=== PATIENT | female | born 1990 | race Two or more races ===

== ENCOUNTER 2020-12-22 07:13 | Inpatient (IN) | payer OTHER ==
[2020-12-22 08:24] VITALS: BMI 37.9
[2020-12-22 08:41] LABS: BASO % 0.5 % (0-2.0); EOS % 1.9 % (0-4.5); HEMOGLOBIN 11.5 GM/dL (10.7-15.3); LYMPH % 16.8 % (8-40); MCH 27.9 pg (25.7-33.7); MCHC 33.9 g/dl (32.0-36.0); MEAN CELL VOLUME 82.3 fl (80-96); MEAN PLT VOLUME 8.2 fl (7.5-11.1); NEUT % 75.8 % (42.8-82.8); PLATELET COUNT 233 10^3/uL (134-434); RBC 4.13 M/mm3 (3.60-5.2); RDW 14.2 % (11.6-15.6); WHITE BLOOD COUNT 6.1 K/mm3 (4.0-10.0)
[2020-12-22 08:58] LABS: INR 0.92 (0.83-1.09); PROTHROMBIN TIME (PATIENT) 11.3 SEC (9.7-13.0)
[2020-12-22 09:00] LABS: ACTIVATED PTT 28.5 SECONDS (25.2-36.5); CALCIUM 8.7 mg/dL (8.5-10.1)
[2020-12-22 09:01] LABS: BLOOD UREA NITROGEN 13.6 mg/dL (7-18)
[2020-12-22 09:04] LABS: CREATININE 0.5 mg/dL (0.55-1.3)
[2020-12-22] MEDS ORDERED: PROMETHAZINE HCL 25 MG/1 ML VIAL IVPB ONE (09:04)
[2020-12-22] MEDS ORDERED: BUTORPHANOL TARTRATE 1 MG/ML VIAL IVPB PRN (09:04)
[2020-12-22 09:19] LABS: RETICULOCYTES 1.63 % (0.5-1.5)
[2020-12-22] MEDS ORDERED: DINOPROSTONE 10 MG VAGINAL SUPPOSITORY VG ONE (09:30)
[2020-12-22] MEDS: ELECTROLYTE-148 SOLN 1,000 ML IV SCH ×2 (10:30→18:00)
[2020-12-22 11:12] LABS: PH,URINE 8.5 (5.0-8.0); URINE APPEARANCE Clear; URINE BILIRUBIN Negative (NEGATIVE); URINE COLOR Yellow; URINE GLUCOSE (UA) Negative (NEGATIVE); URINE KETONE 1+ (NEGATIVE); URINE LEUK ESTERASE Negative (NEGATIVE); URINE NITRITE Negative (NEGATIVE); URINE PROTEIN Negative (NEGATIVE)
[2020-12-22] MEDS: MISOPROSTOL 25 MCG TABLET (COMPOUNDED BY PHARMACY) PO SCH ×3 (12:15→20:15)
[2020-12-22 12:40] LABS: HIV INTERPRETATION NEGATIVE (NEGATIVE)
[2020-12-22] MEDS ORDERED: AMPICILLIN - 2 GM in SODIUM CHLORIDE 100 ML IVPB ONE (16:20)
[2020-12-22] MEDS ORDERED: OXYTOCIN 30 UNITS in 0.9% NS 30 UNIT/500 ML INFUS.BAG IVPB SCH (23:15)
[2020-12-23] MEDS ORDERED: OXYTOCIN 30 UNITS in 0.9% NS 30 UNIT/500 ML INFUS.BAG IVPB ONE (00:12)
[2020-12-23] MEDS: MISOPROSTOL 25 MCG TABLET (COMPOUNDED BY PHARMACY) PO SCH ×4 (03:20→10:30)
[2020-12-23] MEDS ORDERED: AMPICILLIN SODIUM 2 GM VIAL ONE (06:16)
[2020-12-23] MEDS: AMPICILLIN - 1 GM in SODIUM CHLORIDE 100 ML IVPB SCH ×2 (06:21→09:44)
[2020-12-23] MEDS ORDERED: SENNOSIDES/DOCUSATE COMBO (SENNA PLUS) TABLET (UD) PO PRN (06:54)
[2020-12-23] MEDS ORDERED: METHYLERGONOVINE MALEATE 0.2 MG/1 ML AMP IM PRN (06:54)
[2020-12-23] MEDS ORDERED: oxyCODONE HCL 5 MG TABLET PO PRN ×2 (06:54)
[2020-12-23] MEDS ORDERED: WITCH HAZEL 50% (TUCKS) 40 PAD/JAR PAD TP PRN (06:54)
[2020-12-23] MEDS ORDERED: ACETAMINOPHEN 325 MG TABLET (FP) PO PRN (06:54)
[2020-12-23] MEDS ORDERED: CITRIC ACID/SODIUM CITRATE 30 ML UNIT-DOSE CUP PO ONE (07:00)
[2020-12-23] MEDS ORDERED: PHENYLEPHRINE HCL 10 MG/1 ML SINGLE DOSE VIAL ONE (07:51)
[2020-12-23] MEDS ORDERED: morphine SULFATE/PF 0.5 MG/ML (2cc Syringe - QUVA) ONE (07:51)
[2020-12-23] MEDS ORDERED: ceFAZolin SODIUM 1 GM VIAL ONE ×2 (08:25)
[2020-12-23] MEDS ORDERED: OXYTOCIN 10 UNITS/ML VIAL ONE ×3 (08:25)
[2020-12-23] MEDS ORDERED: ONDANSETRON 4 MG/2 ML VIAL IVPUSH PRN (08:37)
[2020-12-23] MEDS: OXYTOCIN 20 UNITS in 0.9% NS 20 UNIT/1,000 ML INFUS.BAG IV SCH (09:00)
[2020-12-23 09:18] LABS: CORD BASE EXCESS -3.8 mmol/L (0-2); CORD HCO3 21.5 mmHg (20-29); CORD pH 7.348 (7.14-7.44)
[2020-12-23 09:20] LABS: CORD BASE EXCESS -4.5 mmol/L (0-2); CORD HCO3 20.3 mmHg (20-29); CORD PCO2 36.7 mmHg (30-78); CORD pH 7.361 (7.14-7.44)
[2020-12-23] MEDS ORDERED: IBUPROFEN 800 MG/8 ML IJ IVPB ONE (09:49)
[2020-12-23] MEDS: IBUPROFEN 800 MG/8 ML IJ IVPB PRN (10:00)
[2020-12-23] MEDS: LABETALOL HCL 200 MG TABLET (FP) PO SCH ×2 (10:03→23:49)
[2020-12-23] MEDS: PRENATAL VITAMINS W/ FOLIC ACID TABLET (FP) PO SCH (10:03)
[2020-12-23] MEDS: SIMETHICONE 80 MG TAB.CHEW (FP) PO PRN (18:50)
[2020-12-23] MEDS: ACETAMINOPHEN 325 MG TABLET (FP) PO PRN (18:51)
[2020-12-23] MEDS: IBUPROFEN 600 MG TABLET (FP) PO PRN (18:51)
[2020-12-24] MEDS: IBUPROFEN 800 MG/8 ML IJ IVPB PRN (06:08)
[2020-12-24] MEDS ORDERED: BISACODYL 10 MG SUPP.RECT RC PRN (06:54)
[2020-12-24 09:57] LABS: BASO % 0.5 % (0-2.0); EOS % 0.9 % (0-4.5); HEMATOCRIT 33.2 % (32.4-45.2); LYMPH % 15.5 % (8-40); MCH 27.3 pg (25.7-33.7); MEAN CELL VOLUME 82.6 fl (80-96); MEAN PLT VOLUME 8.4 fl (7.5-11.1); MONO % 4.5 % (3.8-10.2); NEUT % 78.6 % (42.8-82.8); PLATELET COUNT 185 10^3/uL (134-434); RBC 4.02 M/mm3 (3.60-5.2); RDW 14.3 % (11.6-15.6); WHITE BLOOD COUNT 6.8 K/mm3 (4.0-10.0)
[2020-12-24] MEDS: ELECTROLYTE-148 SOLN 1,000 ML IV SCH (09:59)
[2020-12-24] MEDS: PRENATAL VITAMINS W/ FOLIC ACID TABLET (FP) PO SCH (10:22)
[2020-12-24] MEDS: LABETALOL HCL 200 MG TABLET (FP) PO SCH ×2 (10:27→21:42)
[2020-12-24] MEDS: ACETAMINOPHEN 325 MG TABLET (FP) PO PRN (12:03)
[2020-12-24] MEDS: IBUPROFEN 600 MG TABLET (FP) PO PRN ×2 (14:54→21:42)
[2020-12-25] MEDS: LABETALOL HCL 200 MG TABLET (FP) PO SCH ×2 (09:30→22:29)
[2020-12-25] MEDS: PRENATAL VITAMINS W/ FOLIC ACID TABLET (FP) PO SCH (09:52)
[2020-12-25] MEDS: ACETAMINOPHEN 325 MG TABLET (FP) PO PRN ×2 (10:58→16:52)
[2020-12-25] MEDS: IBUPROFEN 600 MG TABLET (FP) PO PRN ×2 (10:58→16:51)
[2020-12-25] MEDS: SIMETHICONE 80 MG TAB.CHEW (FP) PO PRN (16:52)
[2020-12-26] MEDS: IBUPROFEN 600 MG TABLET (FP) PO PRN ×2 (01:19→10:02)
[2020-12-26] MEDS: ACETAMINOPHEN 325 MG TABLET (FP) PO PRN ×2 (01:19→10:02)
[2020-12-26] MEDS: SIMETHICONE 80 MG TAB.CHEW (FP) PO PRN ×2 (01:20→10:01)
[2020-12-26 07:33] LABS: HEMATOCRIT 30.6 % (32.4-45.2); HEMOGLOBIN 10.3 GM/dL (10.7-15.3); MEAN CELL VOLUME 82.1 fl (80-96); RBC 3.72 M/mm3 (3.60-5.2); WHITE BLOOD COUNT 5.2 K/mm3 (4.0-10.0)
[2020-12-26 07:34] LABS: BASO % 0.5 % (0-2.0); EOS % 3.7 % (0-4.5); LYMPH % 19.9 % (8-40); MCH 27.8 pg (25.7-33.7); MCHC 33.8 g/dl (32.0-36.0); MEAN PLT VOLUME 8.3 fl (7.5-11.1); MONO % 4.5 % (3.8-10.2); NEUT % 71.4 % (42.8-82.8); PLATELET COUNT 200 10^3/uL (134-434); RDW 14.5 % (11.6-15.6)
[2020-12-26] MEDS: OXYTOCIN 20 UNITS in 0.9% NS 20 UNIT/1,000 ML INFUS.BAG IV SCH (07:41)
[2020-12-26] MEDS: ELECTROLYTE-148 SOLN 1,000 ML IV SCH (09:59)
[2020-12-26] MEDS: PRENATAL VITAMINS W/ FOLIC ACID TABLET (FP) PO SCH (10:01)
[2020-12-26] MEDS: LABETALOL HCL 200 MG TABLET (FP) PO SCH (11:14)
[2020-12-26 11:33] VITALS: BP 121/80; PULSE 97; TEMP 97.8
== END 2020-12-26 11:25 | disposition home or self-care (01) | DRG 788 ==
LOC: JLDR 07:13 → J3W 12-23 10:35
PROVIDERS: ADMIT Obstetrics & Gynecology; ATTEND Obstetrics & Gynecology
PROC: 0U7C7ZZ Dilation of Cervix, Via Natural or Artificial Opening (ICD-10-PCS; 2020-12-22)
PROC: 10D00Z1 Extraction of Products of Conception, Low, Open Approach (ICD-10-PCS; principal; 2020-12-23)
DX: O62.9 Abnormality of forces of labor, unspecified (principal); O13.3 Gestational [pregnancy-induced] hypertension without significant proteinuria, third trimester; O99.214 Obesity complicating childbirth; E66.9 Obesity, unspecified; Z3A.38 38 weeks gestation of pregnancy; Z37.0 Single live birth
CPT/HCPCS: 36415; 36600; 80048; 81003; 82803; 82977; 83010; 84450; 84460; 84550; 85025; 85045; 85610; 85730; 86780; 86850; 86900; 86901; 87389; 88307-TC